=== PATIENT | male | born 1980 | race Caucasian/White ===

== ENCOUNTER 2022-02-22 13:17 | Emergency (ER) | payer SELFPAY ==
[~2022-02-22] VITALS: Ht 188 cm; Wt 100.0 kg
[2022-02-22 13:27] VITALS: BP 150/100
[2022-02-22] MEDS ORDERED: FLUORESCEIN 1MG EYE STRIP. ONE (13:39)
[2022-02-22] MEDS ORDERED: FLUORESCEIN 1MG EYE STRIP. OS ONE (13:45)
[2022-02-22] MEDS ORDERED: TETRACAINE 0.5% OPHTH SOLUTION 4ML BOTTLE. OS ONE (13:45)
--- NOTE | 2022-02-22 13:58 | PHYS DOC ---
Past History Past Surgical History: Other Additional Past Surgical Histo: right hand surgery fx repair (JONI AREVALO) General Adult EDM: Chief Complaint: FOREIGN BODY/EYES HPI: HPI: Patient is a 41 year old male who presents with left eye pain, redness and discharge since Tuesday. Patient states that he was underneath a car working on it, when he thought he felt something fall into his eye. Patient denies working with a torch or other hot objects or any high velocity metal penetrating his eye. He flushed his eye with Visine and covered it with an eye patch. Patient has reported consistent pain and watery discharge since that time. Today, upon taking off the eye patch, he noticed that he had significantly blurred vision. Patient has no other complaints at this time. (JONI AREVALO) Review of Systems: Review of Systems: ROS negative or noncontributory except as mentioned in HPI. (JONI AREVALO) Current Medications: Current Meds: Current Medications Medications (Trade) Dose Ordered Sig/Wyatt Start Time Stop Time Status Last Admin Dose Admin Fluorescein Sodium (Ful-Laquita 1mg) 1 strip STK-MED ONCE 02/22/22 13:39 02/22/22 13:40 DC Tetracaine HCl (Tetracaine) 1 drop 1X ONCE 02/22/22 13:45 02/22/22 13:46 DC 02/22/22 13:48 1 DROP (JONI AREVALO) Allergies: Allergies: Allergies Coded Allergies Type Severity Reaction Last Updated Verified No Known Drug Allergies 02/22/22 No (JONI AREVALO) Physical Exam: PE: Constitutional: Well developed, well nourished, no acute distress, non-toxic appearance. HENT: Normocephalic, atraumatic, bilateral external ears normal, nose normal. Eyes: PERRL, EOMI bilaterally. Left eye with significant conjunctival injection and watery discharge. Very small <1mm, black foreign body appreciated approximately 2:00 left cornea; difficult to tell whether there is a surrounding rust ring secondary to patient light eye color. Zarco lamp exam does not reveal globe rupture or additional corneal abrasion. Skin: Warm, dry, no erythema, no rash. Extremities: No cyanosis, no clubbing, ROM intact, no edema. Neurologic: Alert and oriented x4, steady and symmetrical upright gait, no focal deficits noted. (JONI AREVALO) Current Patient Data: Vital Signs: Vital Signs Date Time Temp Pulse Resp B/P (MAP) Pulse Ox O2 Delivery O2 Flow Rate FiO2 02/22/22 13:27 98 18 150/100 (117) 97 (JONI AREVALO) Heart Score: C/O Chest Pain: No (JONI AREVALO) Course & Med Decision Making: Course & Med Decision Making Pertinent Labs and Imaging studies reviewed. (See chart for details) Patient is a 41-year-old male who presents with possible foreign body in his left eye since Tuesday, while he was working on a car. Patient history and exam is concerning for metallic foreign body to the left cornea. During Zarco lamp exam, I did attempt to remove the foreign body with a cotton swab soaked in tetracaine without success. Dr. Kelly with [facility] was contacted. Dr. Lilly advised the patient present directly to the ophthalmology office for foreign body extraction. Patient was advised on risk versus benefit of deferring treatment. Patient has a friend who can transport him directly to [facility]. He was provided with the phone number and address. Return precautions were provided. Patient understands and is agreeable to discharge plan directly to [facility]. (JONI AREVALO) Dragon Disclaimer: Collins Disclaimer: This electronic medical record was generated, in whole or in part, using a voice recognition dictation system. (JONI AREVALO) Departure Departure: Impression: Primary Impression: Intraocular foreign body, left eye Qualified Codes: S05.52XA - Penetrating wound with foreign body of left eyeball, initial encounter Additional Impression: Elevated blood pressure reading Disposition: HOME / SELF CARE / HOMELESS Condition: STABLE Referrals: PCP,NO (PCP) Patient Instructions: Eye - Foreign Body, [id number] Additional Instructions: PROCEED DIRECTLY TO [facility] FOR FURTHER TREATMENT. [address] [place] [id number] P: [phone] EMERGENCY DEPARTMENT GENERAL DISCHARGE INSTRUCTIONS Thank you for coming to [facility] (ED) today and trusting us with you care. We trust that you had a positive experience in our Emergency Department. If you wish to speak to the department management, you may call the director at [phone]. YOUR FOLLOW UP INSTRUCTIONS ARE FOLLOWS: 1. Follow up with your primary care doctor. If you do not have a primary docto r, please ask for a resource list of physicians or clinics that may be able to assist you with follow up care. 2. The emergency provider has interpreted your imaging studies, if any were ordered. The radiology medical imaging technologist also reviewed them. If there is a change in the findings, you will be notified in 48 hours when at all possible. 3. If a lab test or culture has been done, your results will be reviewed and you will be notified if you need a change in treatment. 4. Follow instructions verbalized to you and refer to the printouts if needed. ADDITIONAL INSTRUCTIONS AND INFORMATION: 1. Your care today has been supervised by a physician who is specially trained in emergency care. Many problems require more than one evaluation for a complete diagnosis and treatment. We recommend that you schedule your follow up appointment as recommended to ensure complete treatment of you illness or injury. If you are unable to obtain follow up care and continue to have a problem, or if your condition worsens, we recommend that you return to the ED. 2. We are not able to safely determine your condition over the phone nor are we able to give sound medical advice over the phone. For these safety reasons, if you call for medical advice we will ask you to come to the ED for further evaluation. 3. If you have any questions regarding these discharge instructions please call the ED at [phone]. SAFETY INFORMATION: In the interest of safety, wellness, and injury prevention; we encourage you to wear your seat belt, if you smoke; quite smoking, and we encourage family to use a protective helmet for bicycling and other sporting events that present an increased risk for head injury. IF YOUR SYMPTOMS WORSEN OR NEW SYMPTOMS DEVELOP, OR YOU HAVE CONCERNS ABOUT YOUR CONDITION; OR IF YOUR CONDITION WORSENS WHILE YOU ARE WAITING FOR YOUR FOLLOW UP APPOINTMENT; EITHER CONTACT YOUR PRIMARY CARE DOCTOR, THE PHYSICIAN WHOSE NAME AND NUMBER YOU WERE GIVEN, OR RETURN TO THE ED IMMEDIATELY. Attending Signature I have participated in the care of this patient and I have reviewed and agree with all pertinent clinical information above including history, exam, and recommendations. (BRIAN MORTENSEN DO) JONI AREVALO Feb 22, 2022 13:58 BRIAN MORTENSEN DO Feb 22, 2022 17:18
== END 2022-02-22 14:08 | disposition home or self-care (01) ==
LOC: ER 13:17
DX: S05.52XA Penetrating wound with foreign body of left eyeball, initial encounter (principal); T15.02XA Foreign body in cornea, left eye, initial encounter; R03.0 Elevated blood-pressure reading, without diagnosis of hypertension; X58.XXXA Exposure to other specified factors, initial encounter; Y93.89 Activity, other specified; Y92.89 Other specified places as the place of occurrence of the external cause; Y99.8 Other external cause status
CPT/HCPCS: 65220; 99284